=== PATIENT | female | born 1950 | race Caucasian/White ===

== ENCOUNTER 2018-12-17 16:22 | Emergency (ER) | payer MEDICARE, OTHER ==
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
[2018-12-17 19:11] VITALS: BP 183/94
== END 2018-12-17 19:33 | disposition home or self-care (01) ==
LOC: ED 16:22
DX: R07.89 Other chest pain (principal); V43.62XA Car passenger injured in collision with other type car in traffic accident, initial encounter; Y92.9 Unspecified place or not applicable; Z87.891 Personal history of nicotine dependence
CPT/HCPCS: 71046; 93005; 99282